=== PATIENT | male | born 1990 | race Caucasian/White ===

== ENCOUNTER 2019-06-16 05:36 | Emergency (ER) | payer SELFPAY ==
[~2019-06-16] VITALS: Ht 182.9 cm; Wt 70.2 kg
[2019-06-16 05:41] VITALS: BP 126/83
--- NOTE | 2019-06-16 06:04 | NUR ---
pt presented with c/o right upper dental abscess x several days. pa at [facility] celia brown
== END 2019-06-16 06:25 | disposition home or self-care (01) ==
LOC: ED 06:02
DX: K08.89 Other specified disorders of teeth and supporting structures (principal)
CPT/HCPCS: 99283

== ENCOUNTER 2020-02-18 03:52 | Emergency (ER) | payer OTHER ==
[~2020-02-18] VITALS: Ht 190.5 cm; Wt 74.8 kg
[2020-02-18 03:57] VITALS: BP 135/72
--- NOTE | 2020-02-18 04:38 | NUR ---
PT D/C WITH D/C SUMMARY AND SCRIPTS. ALL QUESTIONS ANSWERED. PT AMBULATES TO REGISTRATION DESK WITH STEADY GAIT FOR D/C HOME. PT DENIES ANY OTHER NEEDS PERTAINING TO THIS VISIT.
== END 2020-02-18 04:43 | disposition home or self-care (01) ==
LOC: ED 04:22
DX: K02.9 Dental caries, unspecified (principal); H92.02 Otalgia, left ear; F17.210 Nicotine dependence, cigarettes, uncomplicated
CPT/HCPCS: 99283; 99406

== ENCOUNTER 2020-07-11 03:11 | Emergency (ER) | payer SELFPAY ==
[2020-07-11 03:13] VITALS: BP 137/77
--- NOTE | 2020-07-11 03:57 | NUR ---
F/U and D/C instructions given to pt and he v/u. ambulatory, and in no acute distress.
== END 2020-07-11 03:59 | disposition home or self-care (01) ==
LOC: ED 03:42
DX: L73.8 Other specified follicular disorders (principal); F17.200 Nicotine dependence, unspecified, uncomplicated; Z72.9 Problem related to lifestyle, unspecified
CPT/HCPCS: 99283